=== PATIENT | male | born 1985 | race Two or more races ===

== ENCOUNTER 2020-01-12 08:26 | Day surgery (SDC) | payer BC ==
[~2020-01-12] VITALS: Ht 190.5 cm; Wt 93.4 kg
[2020-01-12] VITALS (8 sets, daily range): BP systolic 103–125; BP diastolic 65–95
[2020-01-12] MEDS ORDERED: LR 1000ml ONE (08:27)
[2020-01-12] MEDS ORDERED: fentaNYL 100 mcg/2 mL IV ONE (08:27)
[2020-01-12] MEDS ORDERED: LIALDA1.2 GM ORAL (09:02)
[2020-01-12] MEDS ORDERED: METAMUCIL0.52 G1 PO (09:02)
[2020-01-12] MEDS ORDERED: IRON PO (09:02)
[2020-01-12] MEDS ORDERED: Midazolam 2mg/2ml Inj ONE (10:03)
--- NOTE | 2020-01-12 10:18 | Short Stay Surgery H&P ---
History of Present Illness History of Present Illness Chief Complaint see typed H&P HPI Cesar Zhang is a 34 year old male who was admitted on for Ulcerative Colitis Patient History Allergies: Coded Allergies: No Known Allergies (Unverified , 01/12/20) Medication History Scheduled Mesalamine (Lialda), 4.8 GM ORAL DAILY, (Reported) Psyllium Husk (Metamucil), 0.52 GM PO BID, (Reported) [Iron ], 65 MG PO BID, (Reported) Physical Exam Vital Signs Last Vital Signs Date Time Temp Pulse Resp B/P (MAP) Pulse Ox O2 Delivery O2 Flow Rate FiO2 01/12/20 09:03 Room Air 01/12/20 08:57 97.4 98 18 125/95 100 Plan Attestation Are the patient's medical conditions optimized for surgery? Abimael Savage MD Jan 12, 2020 10:18
--- NOTE | 2020-01-12 10:19 | Pre-Procedure Note/Attestation ---
Pre-Procedure Note/Attestation Complete Prior to Procedure Planned Procedure: not applicable Procedure Narrative: Colonoscopy Attestation I attest that I discussed the nature of the procedure; its benefits; risks and complications; and alternatives (and the risks and benefits of such alternatives ), prior to the procedure, with the patient (or the patient's legal printing supplies sales representative). I attest that, if there was a reasonable possibility of needing a blood transfusion, the patient (or the patient's legal printing supplies sales representative) was given the [facility] standardized written summary, pursuant to the Emir Ashby Blood Safety Act ([place] Health and Safety Code # 1645, as amended). I attest that I re-evaluated the patient just prior to the surgery and that there has been no change in the patient's H&P, except as documented below: Abimael Savage MD Jan 12, 2020 10:19
[2020-01-12] MEDS ORDERED: LR 1000ml 1,000 ML IVLG SCH (10:37)
--- NOTE | 2020-01-12 10:37 | Anethesia Preoperative Eval ---
Anesthesia Pre-op PMH/ROS General Date of Evaluation: Jan 12, 2020 Time of Evaluation: 10:02 Anesthesiologist: Alberto ASA Score: ASA 2 Mallampati Score Class I : Soft palate, uvula, fauces, pillars visible Class II: Soft palate, uvula, fauces visible Class III: Soft palate, base of uvula visible Class IV: Only hard plate visible Mallampati Classification: Class II Surgeon: Nixon Diagnosis: Ulcerative colitis Surgical Procedure: Colonoscopy Anesthesia History: none Family History: no anesthesia problems Allergies: Coded Allergies: No Known Allergies (Unverified , 01/12/20) Medications: see eMAR Patient NPO?: Yes Past Medical History Cardiovascular: Denies: HTN, CAD, DE, valve dz, arrhythmia, other Pulmonary: Denies: asthma, COPD, JESSA, other Gastrointestinal/Genitourinary: Reports: other - UC; Denies: GERD, CRI, ESRD Neurologic/Psychiatric: Reports: depression/anxiety; Denies: dementia, CVA, TIA, other Endocrine: Denies: DM, hypothyroidism, steroids, other HEENT: Denies: cataract (L), cataract (R), glaucoma, [place] (L), [place] (R), other Hematology/Immune: Reports: anemia - of chronic d-s; Denies: DVT, bleeding disorder, other Musculoskeletal/Integumentary: Denies: OA, RA, DJD, DDD, edema, other PMH Narrative: as above PSxH Narrative: See H&P Anesthesia Pre-op Phys. Exam Physician Exam Last Vital Signs Date Time Temp Pulse Resp B/P (MAP) Pulse Ox O2 Delivery O2 Flow Rate FiO2 01/12/20 09:03 Room Air 01/12/20 08:57 97.4 98 18 125/95 100 Constitutional: NAD Neurologic: CN 2-12 intact Cardiovascular: RRR, no M/R/G Respiratory: CTA Gastrointestinal: S/NT/ND Airway Exam Mallampati Score: Class II MO: full Neck: flexible ROM: full Teeth: intact Dentures: no upper, no lower Anesthesia Pre-op A/P Labs see Chart Risk Assessment & Plan Assessment: ASA 2 Plan: MAC Status Change Before Surgery: No Gerson Dominguez MD Jan 12, 2020 10:37
[2020-01-12] MEDS ORDERED: fentaNYL 100 mcg/2 mL IV PRN (10:45)
--- NOTE | 2020-01-12 11:13 | Immediate Post-Op Evaluation ---
Immediate Post-Op Evalulation Immediate Post-Op Evalulation Procedure: Colonoscopy Date of Evaluation: Jan 12, 2020 Time of Evaluation: 11:12 IV Fluids: 1000 Blood Products: none Estimated Blood Loss: min Urinary Output: none Blood Pressure Systolic: 122 Blood Pressure Diastolic: 83 Pulse Rate: 78 Respiratory Rate: 20 O2 Sat by Pulse Oximetry: 99 Temperature (Fahrenheit): 97.7 Pain Score (1-10): 1 Nausea: No Vomiting: No Complications none Patient Status: awake, patent, none Hydration Status: adequate Gerson Dominguez MD Jan 12, 2020 11:13
--- NOTE | 2020-01-12 11:13 | Endoscopy Procedure Note ---
Endoscopy Procedure Note General Indication for Procedure: uc Procedures Performed: colonoscopy Operative Findings/Diagnosis: uc pancolitis, distorted IC valve, terminal ileitis, colon polyp Specimen: yes Pt Tolerated Procedure Well: Yes Estimated Blood Loss: none Anesthesia Anesthesiologist: cheyenne Anesthesia: MAC Medications Medication Given: see anesthesia record Inserted Devices Implant(s) used?: No Quality Why scope didn't reach cecum: Therapeutic intervn only GI Core Measures 50 yrs or older w/o bx or poly: Not Applicable 10yrs. F/U recommended: Not Applicable Abimael Savage MD Jan 12, 2020 11:13
--- NOTE | 2020-01-12 11:14 | Pre-Procedure Note/Attestation ---
Pre-Procedure Note/Attestation Complete Prior to Procedure Planned Procedure: not applicable Procedure Narrative: colon bx Attestation I attest that I discussed the nature of the procedure; its benefits; risks and complications; and alternatives (and the risks and benefits of such alternatives ), prior to the procedure, with the patient (or the patient's legal solar sales representative). I attest that, if there was a reasonable possibility of needing a blood transfusion, the patient (or the patient's legal solar sales representative) was given the [facility] standardized written summary, pursuant to the Emir [place]an Blood Safety Act ([place] Health and Safety Code # 1645, as amended). I attest that I re-evaluated the patient just prior to the surgery and that there has been no change in the patient's H&P, except as documented below: Abimael Savage MD Jan 12, 2020 11:14
--- NOTE | 2020-01-12 12:18 | 48 Hour Post Anesthesia Eval ---
Post Anesthesia Evaluation Procedure: Colonoscopy Date of Evaluation: Jan 12, 2020 Time of Evaluation: 12:16 Blood Pressure Systolic: 105 0: 68 Pulse Rate: 82 Respiratory Rate: 18 Temperature (Fahrenheit): 97.6 O2 Sat by Pulse Oximetry: 98 Airway: patent Nausea: No Vomiting: No Pain Intensity: 2 Hydration Status: adequate Cardiopulmonary Status: stable Mental Status/LOC: patient returned to baseline Follow-up Care/Observations: n/a Post-Anesthesia Complications: none Follow-up care needed: ready to discharge Gerson Dominguez MD Jan 12, 2020 12:18
--- NOTE | 2020-01-12 15:44 | Operative Note - Dictated ---
DATE OF OPERATION: 01/12/2020 GASTROENTEROLOGY PROCEDURE REPORT PROCEDURE: Colonoscopy with biopsy. SURGEON: Abimael Savage MD. ANESTHESIOLOGIST: Gerson Dominguez MD. PRE-ENDOSCOPIC DIAGNOSIS: Ulcerative colitis with recent flare. POST-ENDOSCOPIC DIAGNOSES: 1. Ulcerative pancolitis involving the entire colon from the rectum to the cecum in a circumferential fashion. 2. Mucosal abnormalities included friability, loss of vascularity, shallow ulcerations throughout the colon. 3. 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 4. Inflammatory changes seen in the first 10 to 15 cm of the terminal ileum suggestive of terminal ileitis. 5. Flat 5 mm polyp like lesions seen in the colon at 40 cm, which were biopsied off. 6. Status post random biopsies of the deformed ileocecal valve. 7. Status post random biopsies of the terminal ileum, 20 cm and 10 cm proximal to the ileocecal valve. 8. Status post random biopsies of the right colon, left colon, and rectosigmoid colon. DESCRIPTION OF PROCEDURE: The procedure, its risks, indications, alternatives, and possible complications were explained to the patient and informed consent was obtained. Patient was then sedated. A diagnostic colonoscope was introduced in the rectum and advanced to the small bowel. During the first pass, the ileocecal valve was not appreciated in its natural anatomy. The distorted area was passed, but then the colonic mucosa began looking like small bowel mucosa and therefore that distorted area appeared to be ileocecal valve, which was wide open and appeared in the forward-looking direction as opposed to the typical 90 degree bend. The terminal ileal mucosa showed evidence of erythema and friability. After about 15 cm, that appeared more normal. Biopsies of the terminal ileum were obtained at 20 cm proximal to the ileocecal valve, which was felt to be normal mucosa and then a 10 cm more active inflammation area. The ileocecal valve itself did not appear in its typical shape or angle. It was biopsied and the biopsies were sent to pathology for review. The cecum also had lost its typical appearance. Photo documentation was obtained. Biopsies of the right colon, left colon, and rectosigmoid colon was sent to pathology for review. At 40 cm in the sigmoid colon, there was a 5 mm nodule, which was biopsied off. Retroflexed view of the rectum was unremarkable. The colonoscope was removed and the patient was sent to recovery in good condition. COMPLICATIONS: None. ASSESSMENT: This patient has ulcerative pancolitis involving the entire colon. The ileocecal valve and the cecum may have been deformed due to years of inflammatory activity. The terminal ileum appears to have some degree of inflammation, but it is not clear whether this is a backwash ileitis since the ileocecal valve itself was wide open and therefore likely reflux with colonic material. Biopsies will be evaluated to further define the extent of disease. The patient will be started on steroids and then later on biologics. RECOMMENDATIONS: 1. Begin prednisone 40 mg p.o. daily. 2. Follow up biopsy results. 3. Outpatient followup next week with regards to starting the biological treatment. Abimael Savage M.D. DR: FRED JOB#: [id number] CC: Abimael Savage M.D.; Fax#: [phone] MTDD
== END 2020-01-12 12:00 | disposition home or self-care (01) ==
LOC: GAS 08:26 → EDBD 10:15 → GAS 12:00
DX: K51.00 Ulcerative (chronic) pancolitis without complications (principal); K63.5 Polyp of colon; F32.9 Major depressive disorder, single episode, unspecified; F41.9 Anxiety disorder, unspecified
CPT/HCPCS: 45380; 94003; J2250; J2704; J3010; J7120; 94150